=== PATIENT | female | born 1990 | race Caucasian/White ===

== ENCOUNTER 2018-02-16 15:10 | Emergency (ER) | payer OTHER ==
--- NOTE | 2018-02-16 15:58 | PDOC ---
Rapid Medical Evaluation Time Seen by Provider: 02/16/18 15:56 Medical Evaluation: I have performed a brief in-person evaluation of this patient. The patient presents with a chief complaint of: lower abdominal pain and dysuria x a few weeks. Worsened today. 31 weeks Pertinent physical exam findings: none I have ordered the following: nothing. Patient will proceed to L&D for evaluation and monitoring The patient will proceed to L&D for further evaluation. Discharge Disposition - Diagnosis Abdominal pain affecting - Referrals - Patient Instructions - Post Discharge Activity
[2018-02-16 16:05] VITALS: BMI 34.7
[2018-02-16 17:10] VITALS: BP 101/59; PULSE 91; TEMP 98.6
== END 2018-02-16 17:40 | disposition home or self-care (01) ==
LOC: JER 15:10
DX: O26.893 Other specified pregnancy related conditions, third trimester (principal); R10.30 Lower abdominal pain, unspecified; Z3A.31 31 weeks gestation of pregnancy
CPT/HCPCS: 99281-25

== ENCOUNTER 2020-07-06 10:34 | Emergency (ER) | payer OTHER ==
[2020-07-06 10:46] VITALS: BP 120/79; PULSE 63; TEMP 97; BMI 33.3
[2020-07-06] MEDS ORDERED: ONDANSETRON 4 MG/2 ML VIAL IVPB ONE (10:58)
[2020-07-06] MEDS ORDERED: ONDANSETRON 4 MG/2 ML VIAL ONE (11:08)
[2020-07-06] MEDS ORDERED: SODIUM CHLORIDE 1,000 ML IV STA (11:30)
[2020-07-06 12:17] LABS: BASO % 0.4 % (0-2.0); EOS % 0.3 % (0-4.5); HEMATOCRIT 44.5 % (32.4-45.2); LYMPH % 16.7 % (8-40); MCH 26.7 pg (25.7-33.7); MCHC 33.7 g/dl (32.0-36.0); MEAN CELL VOLUME 79.2 fl (80-96); MEAN PLT VOLUME 9.3 fl (7.5-11.1); MONO % 4.3 % (3.8-10.2); NEUT % 78.3 % (42.8-82.8); PLATELET COUNT 328 K/MM3 (134-434); RBC 5.62 M/mm3 (3.60-5.2); WHITE BLOOD COUNT 12.5 K/mm3 (4.0-10.0)
[2020-07-06 12:19] LABS: EPI CELLS 7 /uL (0-25.1); HYALINE CASTS 1 /uL (0-3.1); PH,URINE 5.5 (5.0-8.0); URINE APPEARANCE CLEAR; URINE BACTERIA 110 /uL (0-1359); URINE BILIRUBIN NEGATIVE (NEGATIVE); URINE COLOR DK YELLOW; URINE GLUCOSE (UA) NEGATIVE (NEGATIVE); URINE KETONE TRACE (NEGATIVE); URINE LEUK ESTERASE NEGATIVE (NEGATIVE); URINE NITRITE NEGATIVE (NEGATIVE); URINE PROTEIN TRACE (NEGATIVE); URINE RBC 8 /uL (0-23.9); URINE WBC 5 /uL (0-25.8)
[2020-07-06 12:20] LABS: HCG,QUALITATIVE URINE Negative
[2020-07-06] MEDS ORDERED: KETOROLAC TROMETHAMINE 30 MG/1 ML VIAL IVPUSH ONE (12:25)
[2020-07-06] MEDS ORDERED: KETOROLAC TROMETHAMINE 30 MG/1 ML VIAL ONE (12:31)
[2020-07-06 12:37] LABS: POTASSIUM 4.8 mmol/L (3.5-5.1)
[2020-07-06 12:39] LABS: ALBUMIN 4.7 g/dl (3.4-5.0); CALCIUM 9.5 mg/dL (8.5-10.1); MAGNESIUM 2.3 mg/dL (1.8-2.4)
[2020-07-06 12:40] LABS: BLOOD UREA NITROGEN 7.1 mg/dL (7-18)
[2020-07-06 12:42] LABS: CREATININE 1.1 mg/dL (0.55-1.3)
[2020-07-06 12:44] LABS: BILIRUBIN,TOTAL 0.8 mg/dL (0.2-1); TOT PROT 8.3 g/dl (6.4-8.2)
[2020-07-06] MEDS ORDERED: ACETAMINOPHEN 1000 MG/100 ML VIAL (NON FORMULARY) IVPB ONE (12:55)
[2020-07-06] MEDS ORDERED: ACETAMINOPHEN INJECTION 100 ML IVPB ONE (13:16)
== END 2020-07-06 16:23 | disposition home or self-care (01) ==
LOC: JER 10:34
PROC: 3E0333Z Introduction of Anti-inflammatory into Peripheral Vein, Percutaneous Approach (ICD-10-PCS; principal; 2020-07-06)
PROC: 3E0333Z Introduction of Anti-inflammatory into Peripheral Vein, Percutaneous Approach (ICD-10-PCS; 2020-07-06)
PROC: 3E033GC Introduction of Other Therapeutic Substance into Peripheral Vein, Percutaneous Approach (ICD-10-PCS; 2020-07-06)
PROC: 3E0337Z Introduction of Electrolytic and Water Balance Substance into Peripheral Vein, Percutaneous Approach (ICD-10-PCS; 2020-07-06)
DX: R10.2 Pelvic and perineal pain (principal); R10.31 Right lower quadrant pain
CPT/HCPCS: 36415; 74177-TC; 76830-TC; 80053; 81003; 83690; 83735; 84703; 85025; 99285-25; J0131; Q9967

== ENCOUNTER 2020-07-07 16:44 | Inpatient (IN) | payer OTHER ==
[2020-07-07] MEDS ORDERED: ONDANSETRON 4 MG/2 ML VIAL ONE (18:10)
[2020-07-07] MEDS ORDERED: ACETAMINOPHEN 1000 MG/100 ML VIAL (NON FORMULARY) IVPB ONE (18:18)
[2020-07-07] MEDS ORDERED: LACTATED RINGERS SOLUTION 1000 ML INFUS.BAG IV ONE (18:18)
[2020-07-07] MEDS ORDERED: ONDANSETRON 4 MG/2 ML VIAL IVPUSH ONE (18:20)
[2020-07-07] MEDS ORDERED: ACETAMINOPHEN INJECTION 100 ML IVPB ONE (18:22)
[2020-07-07 18:55] LABS: BASO % 0.3 % (0-2.0); HEMATOCRIT 41.3 % (32.4-45.2); HEMOGLOBIN 14.1 GM/dL (10.7-15.3); LYMPH % 4.7 % (8-40); MCH 26.8 pg (25.7-33.7); MCHC 34.3 g/dl (32.0-36.0); MEAN CELL VOLUME 78.2 fl (80-96); MONO % 2.8 % (3.8-10.2); NEUT % 92.2 % (42.8-82.8); PLATELET COUNT 266 K/MM3 (134-434); RBC 5.27 M/mm3 (3.60-5.2); RDW 15.3 % (11.6-15.6); WHITE BLOOD COUNT 25.6 K/mm3 (4.0-10.0)
[2020-07-07 19:17] LABS: POTASSIUM 3.4 mmol/L (3.5-5.1)
[2020-07-07 19:19] LABS: ALBUMIN 4.4 g/dl (3.4-5.0); BLOOD UREA NITROGEN 12.2 mg/dL (7-18); CALCIUM 9.8 mg/dL (8.5-10.1)
[2020-07-07 19:22] LABS: CREATININE 1.1 mg/dL (0.55-1.3)
[2020-07-07 19:24] LABS: BILIRUBIN,TOTAL 1.3 mg/dL (0.2-1)
[2020-07-07] MEDS ORDERED: SODIUM CHLORIDE 0.9% 500 ML INFUS.BAG IV ONE ×2 (19:47→21:46)
[2020-07-07] MEDS ORDERED: morphine CARPU-JECT 4 MG/1 ML DISP.SYRIN IVPUSH ONE (20:21)
[2020-07-07] MEDS ORDERED: MORPHINE SULFATE 2 MG/ML VIAL ONE (20:30)
[2020-07-07 20:46] LABS: INR 1.88 (0.83-1.09); PROTHROMBIN TIME (PATIENT) 22.7 SEC (9.7-13.0)
[2020-07-07 20:47] LABS: ANISOCYTOSIS 1+; PLATELET ESTIMATE ADEQUATE
[2020-07-07 20:49] LABS: ACTIVATED PTT 30.3 SECONDS (25.2-36.5)
[2020-07-07 22:13] LABS: EPI CELLS 16 /uL (0-25.1); HYALINE CASTS 3 /uL (0-3.1); URINE APPEARANCE CLEAR; URINE BACTERIA 23 /uL (0-1359); URINE BILIRUBIN NEGATIVE (NEGATIVE); URINE COLOR ORANGE; URINE GLUCOSE (UA) NEGATIVE (NEGATIVE); URINE KETONE 1+ (NEGATIVE); URINE LEUK ESTERASE NEGATIVE (NEGATIVE); URINE NITRITE NEGATIVE (NEGATIVE); URINE PROTEIN 1+ (NEGATIVE); URINE RBC 278 /uL (0-23.9); URINE UROBILINOGEN 0.2 mg/dL (0.2-1.0); URINE WBC 17 /uL (0-25.8)
[2020-07-07 22:54] LABS: URINE BARBITURATES NEGATIVE ng/ml (CUTOFF=200)
[2020-07-07 22:58] LABS: COCAINE, UR NEGATIVE ng/ml (CUTOFF=300); METHADONE, UR NEGATIVE ng/ml (CUTOFF=300); PHENCYCLIDINE,URINE NEGATIVE ng/ml (CUTOFF=25); URINE AMPHETAMINES NEGATIVE ng/ml (CUTOFF=500); URINE BENZODIAZEPINES NEGATIVE ng/ml (CUTOFF=200)
[2020-07-07 23:11] LABS: OPIATES, URI POSITIVE ng/ml (CUTOFF=300)
[2020-07-07] MEDS ORDERED: FAMOTIDINE 20 MG/50 ML IVPB 20 MG/50 ML MG IVPB ONE ×2 (23:19→23:59)
[2020-07-08] MEDS: DEXTROSE 5%-0.45% SALINE 1,000 ML IV SCH ×3 (00:07→23:29)
[2020-07-08] MEDS ORDERED: MORPHINE SULFATE 2 MG/ML VIAL ONE ×2 (01:24→09:13)
[2020-07-08] MEDS: MORPHINE SULFATE 2 MG/ML VIAL IVPUSH PRN ×3 (01:39→14:20)
[2020-07-08] MEDS ORDERED: ACETAMINOPHEN INJECTION 100 ML IVPB ONE ×2 (01:41→10:49)
[2020-07-08] MEDS: ACETAMINOPHEN 1000 MG/100 ML VIAL (NON FORMULARY) IVPB PRN ×3 (01:46→18:07)
[2020-07-08] MEDS ORDERED: ONDANSETRON 4 MG/2 ML VIAL ONE (05:25)
[2020-07-08] MEDS: ONDANSETRON 4 MG/2 ML VIAL IVPUSH PRN ×3 (05:28→23:30)
[2020-07-08] MEDS ORDERED: HYDROmorphone HCl 2 MG/ML VIAL IVPUSH ONE (06:39)
[2020-07-08] MEDS ORDERED: HYDROmorphone HCl 2 MG/ML VIAL ONE (07:29)
[2020-07-08 08:17] LABS: BASO % 0.1 % (0-2.0); EOS % 0.2 % (0-4.5); HEMATOCRIT 36.3 % (32.4-45.2); HEMOGLOBIN 12.2 GM/dL (10.7-15.3); LYMPH % 3.9 % (8-40); MCH 26.3 pg (25.7-33.7); MCHC 33.6 g/dl (32.0-36.0); MEAN CELL VOLUME 78.1 fl (80-96); MEAN PLT VOLUME 9.1 fl (7.5-11.1); MONO % 1.8 % (3.8-10.2); PLATELET COUNT 252 K/MM3 (134-434); RBC 4.65 M/mm3 (3.60-5.2); RDW 15.4 % (11.6-15.6); WHITE BLOOD COUNT 22.9 K/mm3 (4.0-10.0)
[2020-07-08 08:33] LABS: POTASSIUM 3.6 mmol/L (3.5-5.1)
[2020-07-08 08:41] LABS: ALBUMIN 3.5 g/dl (3.4-5.0); BLOOD UREA NITROGEN 7.3 mg/dL (7-18); CALCIUM 8.8 mg/dL (8.5-10.1)
[2020-07-08 08:44] LABS: CREATININE 0.8 mg/dL (0.55-1.3)
[2020-07-08 08:46] LABS: BILIRUBIN,TOTAL 1.2 mg/dL (0.2-1)
[2020-07-08 08:48] LABS: MAGNESIUM 1.8 mg/dL (1.8-2.4)
[2020-07-08] MEDS ORDERED: ENOXAPARIN NA (PORCINE) 30 MG/0.3 ML DISP.SYRIN SQ ONE (10:09)
[2020-07-08] MEDS ORDERED: FAMOTIDINE 20 MG/50 ML IVPB 20 MG/50 ML MG IVPB ONE (10:09)
[2020-07-08] MEDS: FAMOTIDINE 20 MG/50 ML IVPB 20 MG/50 ML MG IVPB SCH ×2 (10:15→21:43)
[2020-07-08 10:20] LABS: ANISOCYTOSIS 1+; MACROCYTOSIS 1+; PLATELET ESTIMATE NORMAL
[2020-07-08] MEDS: ENOXAPARIN NA (PORCINE) 40 MG/0.4 ML DISP.SYRIN SQ SCH (10:55)
[2020-07-08] MEDS ORDERED: CEFTRIAXONE 2 GM in DEXTROSE 5%-WATER 2 GM/100 ML BAG IVPB SCH (14:30)
[2020-07-08] MEDS ORDERED: DEXTROSE 5%-WATER 100 ML IVPB ONE ×2 (14:49→15:46)
[2020-07-08] MEDS ORDERED: PIPERACILLIN/TAZOBACTAM 4.5 GM VIAL IVPB ONE (15:46)
[2020-07-08] MEDS: PIPERACILLIN/TAZOB 4.5 GM 4.5 GM in DEXTROSE 5%-WATER 100 ML IVPB SCH (16:27)
[2020-07-08] MEDS: VANCOMYCIN 1,250 MG in DEXTROSE 5%-WATER - 250 ML IVPB SCH (17:39)
[2020-07-08] MEDS ORDERED: PT OWN MED DRAWER 7, Y5N ONE (21:45)
[2020-07-08] MEDS: DOXYCYCLINE INJECTION 100 MG in DEXTROSE 5%-WATER - 100 ML IVPB SCH (21:46)
[2020-07-09] MEDS ORDERED: DEXTROSE 5%-WATER 100 ML IVPB ONE ×3 (01:33→17:14)
[2020-07-09] MEDS ORDERED: PIPERACILLIN/TAZOBACTAM 4.5 GM VIAL IVPB ONE ×3 (01:33→17:14)
[2020-07-09] MEDS: MORPHINE SULFATE 2 MG/ML VIAL IVPUSH PRN ×2 (02:30→10:55)
[2020-07-09] MEDS: PIPERACILLIN/TAZOB 4.5 GM 4.5 GM in DEXTROSE 5%-WATER 100 ML IVPB SCH ×3 (02:41→17:18)
[2020-07-09] MEDS: ONDANSETRON 4 MG/2 ML VIAL IVPUSH PRN ×2 (04:54→12:29)
[2020-07-09] MEDS: VANCOMYCIN 1,250 MG in DEXTROSE 5%-WATER - 250 ML IVPB SCH ×2 (05:42→17:21)
[2020-07-09] MEDS: ACETAMINOPHEN 1000 MG/100 ML VIAL (NON FORMULARY) IVPB PRN (05:53)
[2020-07-09 08:58] LABS: BASO % 0.3 % (0-2.0); EOS % 0.7 % (0-4.5); HEMATOCRIT 34.7 % (32.4-45.2); HEMOGLOBIN 11.6 GM/dL (10.7-15.3); LYMPH % 5.7 % (8-40); MCH 26.3 pg (25.7-33.7); MCHC 33.4 g/dl (32.0-36.0); MEAN CELL VOLUME 78.7 fl (80-96); MEAN PLT VOLUME 9.1 fl (7.5-11.1); MONO % 2.7 % (3.8-10.2); NEUT % 90.6 % (42.8-82.8); PLATELET COUNT 249 K/MM3 (134-434); RBC 4.41 M/mm3 (3.60-5.2); RDW 15.4 % (11.6-15.6); WHITE BLOOD COUNT 19.6 K/mm3 (4.0-10.0)
[2020-07-09 09:17] LABS: POTASSIUM 3.1 mmol/L (3.5-5.1)
[2020-07-09 09:22] LABS: BLOOD UREA NITROGEN 4.8 mg/dL (7-18); CALCIUM 8.6 mg/dL (8.5-10.1)
[2020-07-09 09:25] LABS: CREATININE 0.7 mg/dL (0.55-1.3); PHOSPHOROUS 2.2 mg/dL (2.5-4.9)
[2020-07-09 09:27] LABS: BILIRUBIN,TOTAL 1.1 mg/dL (0.2-1); TOT PROT 6.5 g/dl (6.4-8.2)
[2020-07-09] MEDS: ENOXAPARIN NA (PORCINE) 40 MG/0.4 ML DISP.SYRIN SQ SCH (10:04)
[2020-07-09] MEDS: DOXYCYCLINE INJECTION 100 MG in DEXTROSE 5%-WATER - 100 ML IVPB SCH ×2 (10:04→21:55)
[2020-07-09] MEDS: ASCORBIC ACID 500 MG TABLET (FP) PO SCH ×3 (10:04→21:55)
[2020-07-09] MEDS: FAMOTIDINE 20 MG/50 ML IVPB 20 MG/50 ML MG IVPB SCH ×2 (10:04→21:10)
[2020-07-09] MEDS: ZINC SULFATE 220 MG CAPSULE (FP) PO SCH ×2 (10:04→14:21)
[2020-07-09] MEDS ORDERED: PT OWN MED DRAWER 7, Y5N ONE ×2 (17:14→21:08)
[2020-07-09] MEDS: BENZOCAINE/MENTH/CETYLPYRD CL 1 EACH LOZENGE MM PRN (21:55)
[2020-07-10] MEDS ORDERED: DEXTROSE 5%-WATER 100 ML IVPB ONE ×3 (01:07→17:06)
[2020-07-10] MEDS ORDERED: PIPERACILLIN/TAZOBACTAM 4.5 GM VIAL IVPB ONE ×2 (01:07→09:48)
[2020-07-10] MEDS: DEXTROSE 5%-0.45% SALINE 1,000 ML IV SCH (02:51)
[2020-07-10] MEDS: PIPERACILLIN/TAZOB 4.5 GM 4.5 GM in DEXTROSE 5%-WATER 100 ML IVPB SCH ×2 (02:51→10:02)
[2020-07-10] MEDS ORDERED: PT OWN MED DRAWER 7, Y5N ONE ×4 (03:04→21:14)
[2020-07-10] MEDS: MORPHINE SULFATE 2 MG/ML VIAL IVPUSH PRN ×3 (04:05→16:18)
[2020-07-10] MEDS: ONDANSETRON 4 MG/2 ML VIAL IVPUSH PRN (04:07)
[2020-07-10] MEDS: VANCOMYCIN 1,250 MG in DEXTROSE 5%-WATER - 250 ML IVPB SCH (04:08)
[2020-07-10 09:33] LABS: BASO % 0.1 % (0-2.0); EOS % 1.7 % (0-4.5); HEMATOCRIT 32.9 % (32.4-45.2); MCH 26.7 pg (25.7-33.7); MCHC 33.6 g/dl (32.0-36.0); MEAN CELL VOLUME 79.6 fl (80-96); MEAN PLT VOLUME 9.5 fl (7.5-11.1); MONO % 6.7 % (3.8-10.2); NEUT % 83.5 % (42.8-82.8); PLATELET COUNT 257 K/MM3 (134-434); RBC 4.13 M/mm3 (3.60-5.2); RDW 15.1 % (11.6-15.6); WHITE BLOOD COUNT 12.2 K/mm3 (4.0-10.0)
[2020-07-10 09:47] LABS: POTASSIUM 3.1 mmol/L (3.5-5.1)
[2020-07-10] MEDS ORDERED: MAGNESIUM SULF 50% (8.12 MEQ/2 ML-1 GM VIAL) IVPB ONE ×2 (09:55→18:45)
[2020-07-10] MEDS: KCL 10 MEQ IVPB 10 MEQ/100 ML INFUS.BAG IVPB SCH ×3 (09:59→16:16)
[2020-07-10] MEDS: ENOXAPARIN NA (PORCINE) 40 MG/0.4 ML DISP.SYRIN SQ SCH (09:59)
[2020-07-10 10:00] LABS: ALBUMIN 2.8 g/dl (3.4-5.0); BLOOD UREA NITROGEN 10.3 mg/dL (7-18); CALCIUM 8.8 mg/dL (8.5-10.1)
[2020-07-10] MEDS ORDERED: MAGNESIUM SULFATE IN WATER 2 GM/50 ML IVPB IVPB ONE (10:00)
[2020-07-10] MEDS: ZINC SULFATE 220 MG CAPSULE (FP) PO SCH (10:00)
[2020-07-10] MEDS: FAMOTIDINE 20 MG/50 ML IVPB 20 MG/50 ML MG IVPB SCH ×2 (10:01→21:25)
[2020-07-10 10:02] LABS: CREATININE 1.8 mg/dL (0.55-1.3)
[2020-07-10] MEDS: ASCORBIC ACID 500 MG TABLET (FP) PO SCH (10:02)
[2020-07-10] MEDS: DOXYCYCLINE INJECTION 100 MG in DEXTROSE 5%-WATER - 100 ML IVPB SCH ×2 (10:02→21:25)
[2020-07-10 10:03] LABS: BILIRUBIN,TOTAL 0.9 mg/dL (0.2-1)
[2020-07-10 10:04] LABS: TOT PROT 6.4 g/dl (6.4-8.2)
[2020-07-10 10:08] VITALS: BMI 32.5
[2020-07-10 10:17] LABS: MAGNESIUM 2.3 mg/dL (1.8-2.4)
[2020-07-10] MEDS: CEFTRIAXONE 2 GM in DEXTROSE 5%-WATER 2 GM/100 ML BAG IVPB SCH (18:15)
[2020-07-10] MEDS: DEXTROSE 5%-LACTATED RINGERS 1,000 ML IV SCH (18:16)
[2020-07-11] MEDS: DEXTROSE 5%-LACTATED RINGERS 1,000 ML IV SCH ×3 (00:03→21:53)
[2020-07-11] MEDS: MORPHINE SULFATE 2 MG/ML VIAL IVPUSH PRN ×2 (01:16→06:01)
[2020-07-11] MEDS: ONDANSETRON 4 MG/2 ML VIAL IVPUSH PRN (01:16)
[2020-07-11 09:42] LABS: BASO % 0.2 % (0-2.0); EOS % 3.9 % (0-4.5); HEMATOCRIT 30.6 % (32.4-45.2); HEMOGLOBIN 10.4 GM/dL (10.7-15.3); LYMPH % 16.9 % (8-40); MCH 26.5 pg (25.7-33.7); MCHC 33.8 g/dl (32.0-36.0); MEAN CELL VOLUME 78.3 fl (80-96); MEAN PLT VOLUME 8.6 fl (7.5-11.1); MONO % 10.7 % (3.8-10.2); NEUT % 68.3 % (42.8-82.8); PLATELET COUNT 301 K/MM3 (134-434); RDW 15.3 % (11.6-15.6); WHITE BLOOD COUNT 8.2 K/mm3 (4.0-10.0)
[2020-07-11 09:54] LABS: CHLORIDE 109 mmol/L (98-107); SODIUM 140 mmol/L (136-145)
[2020-07-11 09:58] LABS: CALCIUM 8.6 mg/dL (8.5-10.1)
[2020-07-11 09:59] LABS: ALBUMIN 2.5 g/dl (3.4-5.0); ANION GAP 9 MMOL/L (8-16); CO2 23 mmol/L (21-32); GLUCOSE,RANDOM 117 mg/dL (74-106); MAGNESIUM 3.3 mg/dL (1.8-2.4)
[2020-07-11 10:01] LABS: SGOT/AST 9 U/L (15-37); SGPT/ALT < 6 U/L (13-61)
[2020-07-11 10:02] LABS: CREATININE 2.4 mg/dL (0.55-1.3); PHOSPHOROUS 1.5 mg/dL (2.5-4.9)
[2020-07-11 10:03] LABS: BILIRUBIN,TOTAL 0.9 mg/dL (0.2-1); TOT PROT 5.7 g/dl (6.4-8.2)
[2020-07-11] MEDS ORDERED: DEXTROSE 5%-WATER 100 ML IVPB ONE (10:03)
[2020-07-11 10:04] LABS: ALK PHOS 65 U/L (45-117)
[2020-07-11] MEDS: ENOXAPARIN NA (PORCINE) 40 MG/0.4 ML DISP.SYRIN SQ SCH (10:08)
[2020-07-11] MEDS: DOXYCYCLINE INJECTION 100 MG in DEXTROSE 5%-WATER - 100 ML IVPB SCH (10:09)
[2020-07-11] MEDS: CEFTRIAXONE 2 GM in DEXTROSE 5%-WATER 2 GM/100 ML BAG IVPB SCH (10:09)
[2020-07-11] MEDS: FAMOTIDINE 20 MG/50 ML IVPB 20 MG/50 ML MG IVPB SCH ×2 (10:09→21:53)
[2020-07-11] MEDS ORDERED: DEXTROSE 5%-LACTATED RINGERS 980 ML with POTASSIUM CHLORIDE 40 MEQ IV SCH (10:23)
[2020-07-11] MEDS ORDERED: POTASSIUM PHOSPHATE 30 MM in SODIUM CHLORIDE 500 ML IVPB ONE (11:00)
[2020-07-11] MEDS ORDERED: SODIUM CHLORIDE IVPB ONE (12:00)
[2020-07-11] MEDS ORDERED: POTASSIUM PHOSPHATE IVPB ONE (12:00)
[2020-07-11 12:07] LABS: EPI CELLS 27 /uL (0-25.1); HYALINE CASTS 1 /uL (0-3.1); PH,URINE 6.5 (5.0-8.0); URINE APPEARANCE CLEAR; URINE BACTERIA 3 /uL (0-1359); URINE BILIRUBIN NEGATIVE (NEGATIVE); URINE COLOR YELLOW; URINE GLUCOSE (UA) NEGATIVE (NEGATIVE); URINE KETONE NEGATIVE (NEGATIVE); URINE LEUK ESTERASE TRACE (NEGATIVE); URINE NITRITE NEGATIVE (NEGATIVE); URINE PROTEIN TRACE (NEGATIVE); URINE RBC 154 /uL (0-23.9); URINE UROBILINOGEN 0.2 mg/dL (0.2-1.0); URINE WBC 36 /uL (0-25.8)
[2020-07-11] MEDS: KCL 10 MEQ IVPB 10 MEQ/100 ML INFUS.BAG IVPB SCH ×3 (17:53→19:49)
[2020-07-11 20:06] LABS: POTASSIUM 3.4 mmol/L (3.5-5.1)
[2020-07-11 20:08] LABS: CALCIUM 8.5 mg/dL (8.5-10.1)
[2020-07-11 20:09] LABS: BLOOD UREA NITROGEN 11.3 mg/dL (7-18)
[2020-07-11 20:12] LABS: CREATININE 2.4 mg/dL (0.55-1.3)
[2020-07-11] MEDS ORDERED: PT OWN MED DRAWER 7, Y5N ONE (20:37)
[2020-07-11] MEDS: DOXYCYCLINE INJECTION 100 MG in DEXTROSE 5%-WATER 100 ML IVPB SCH (22:06)
[2020-07-12] MEDS: DEXTROSE 5%-LACTATED RINGERS 1,000 ML IV SCH ×2 (06:21→20:17)
[2020-07-12 09:22] LABS: BASO % 0.4 % (0-2.0); EOS % 2.3 % (0-4.5); HEMOGLOBIN 9.8 GM/dL (10.7-15.3); LYMPH % 14.9 % (8-40); MCHC 33.7 g/dl (32.0-36.0); MEAN CELL VOLUME 77.1 fl (80-96); MEAN PLT VOLUME 8.5 fl (7.5-11.1); MONO % 10.7 % (3.8-10.2); NEUT % 71.7 % (42.8-82.8); PLATELET COUNT 306 K/MM3 (134-434); RBC 3.76 M/mm3 (3.60-5.2); RDW 15.4 % (11.6-15.6); WHITE BLOOD COUNT 9.2 K/mm3 (4.0-10.0)
[2020-07-12 09:44] LABS: POTASSIUM 3.2 mmol/L (3.5-5.1)
[2020-07-12 09:52] LABS: BLOOD UREA NITROGEN 10.3 mg/dL (7-18)
[2020-07-12 09:54] LABS: CALCIUM 8.3 mg/dL (8.5-10.1); PHOSPHOROUS 2.7 mg/dL (2.5-4.9)
[2020-07-12 09:55] LABS: MAGNESIUM 2.4 mg/dL (1.8-2.4)
[2020-07-12] MEDS ORDERED: DOXYCYCLINE HYCLATE 100 MG VIAL ONE ×2 (09:57→20:31)
[2020-07-12 09:58] LABS: CREATININE 2.1 mg/dL (0.55-1.3)
[2020-07-12] MEDS ORDERED: DEXTROSE 5%-WATER 100 ML IVPB ONE ×3 (09:58→20:31)
[2020-07-12] MEDS: ENOXAPARIN NA (PORCINE) 40 MG/0.4 ML DISP.SYRIN SQ SCH (10:02)
[2020-07-12] MEDS: CEFTRIAXONE 2 GM in DEXTROSE 5%-WATER 2 GM/100 ML BAG IVPB SCH (10:03)
[2020-07-12] MEDS: FAMOTIDINE 20 MG/50 ML IVPB 20 MG/50 ML MG IVPB SCH ×2 (10:03→22:55)
[2020-07-12] MEDS: DOXYCYCLINE INJECTION 100 MG in DEXTROSE 5%-WATER 100 ML IVPB SCH ×2 (10:05→21:26)
[2020-07-12] MEDS: ONDANSETRON 4 MG/2 ML VIAL IVPUSH PRN (10:16)
[2020-07-12] MEDS ORDERED: POTASSIUM CHLORIDE 10 MEQ PREMIX IVPB (POTASSIUM RIDER) IVPB SCH (12:50)
[2020-07-12] MEDS ORDERED: POTASSIUM CHLORIDE ORAL LIQUID 20 MEQ/15 ML PO ONE (12:50)
[2020-07-12] MEDS: KCL 10 MEQ IVPB 10 MEQ/100 ML INFUS.BAG IVPB SCH ×2 (13:40→14:47)
[2020-07-12] MEDS: MORPHINE SULFATE 2 MG/ML VIAL IVPUSH PRN (20:18)
[2020-07-13] MEDS: ONDANSETRON 4 MG/2 ML VIAL IVPUSH PRN ×3 (01:21→20:29)
[2020-07-13] MEDS: DEXTROSE 5%-LACTATED RINGERS 1,000 ML IV SCH ×2 (07:45→20:03)
[2020-07-13] MEDS: MORPHINE SULFATE 2 MG/ML VIAL IVPUSH PRN (08:21)
[2020-07-13 08:30] LABS: POTASSIUM 3.2 mmol/L (3.5-5.1)
[2020-07-13 08:31] LABS: ALBUMIN 2.5 g/dl (3.4-5.0); CALCIUM 8.4 mg/dL (8.5-10.1)
[2020-07-13 08:32] LABS: BLOOD UREA NITROGEN 7.3 mg/dL (7-18)
[2020-07-13 08:34] LABS: BASO % 0.3 % (0-2.0); EOS % 3.3 % (0-4.5); HEMATOCRIT 27.7 % (32.4-45.2); HEMOGLOBIN 9.6 GM/dL (10.7-15.3); LYMPH % 20.4 % (8-40); MCH 26.8 pg (25.7-33.7); MCHC 34.8 g/dl (32.0-36.0); MEAN CELL VOLUME 77.1 fl (80-96); MEAN PLT VOLUME 8.3 fl (7.5-11.1); MONO % 11.2 % (3.8-10.2); NEUT % 64.8 % (42.8-82.8); PLATELET COUNT 272 K/MM3 (134-434); RDW 15.3 % (11.6-15.6); WHITE BLOOD COUNT 8.6 K/mm3 (4.0-10.0)
[2020-07-13 08:35] LABS: CREATININE 1.9 mg/dL (0.55-1.3); PHOSPHOROUS 2.6 mg/dL (2.5-4.9)
[2020-07-13 08:36] LABS: BILIRUBIN,TOTAL 0.4 mg/dL (0.2-1); TOT PROT 5.6 g/dl (6.4-8.2)
[2020-07-13] MEDS ORDERED: DEXTROSE 5%-WATER 100 ML IVPB ONE ×3 (09:33→20:07)
[2020-07-13] MEDS ORDERED: DOXYCYCLINE HYCLATE 100 MG VIAL ONE ×2 (09:33→20:06)
[2020-07-13] MEDS: FAMOTIDINE 20 MG/50 ML IVPB 20 MG/50 ML MG IVPB SCH ×2 (09:37→23:00)
[2020-07-13] MEDS: ENOXAPARIN NA (PORCINE) 40 MG/0.4 ML DISP.SYRIN SQ SCH (09:37)
[2020-07-13] MEDS: CEFTRIAXONE 2 GM in DEXTROSE 5%-WATER 2 GM/100 ML BAG IVPB SCH (09:37)
[2020-07-13] MEDS: DOXYCYCLINE INJECTION 100 MG in DEXTROSE 5%-WATER 100 ML IVPB SCH ×2 (10:30→21:34)
[2020-07-13 10:48] LABS: ANISOCYTOSIS 0; MACROCYTOSIS 0; PLATELET ESTIMATE NORMAL
[2020-07-13] MEDS ORDERED: POTASSIUM CHLORIDE 20 MEQ PREMIX IVPB 100 ML IVPB ONE (10:58)
[2020-07-13] MEDS: KCL 10 MEQ IVPB 10 MEQ/100 ML INFUS.BAG IVPB SCH ×2 (13:04→14:15)
[2020-07-13] MEDS ORDERED: ACETAMINOPHEN 1000 MG/100 ML VIAL (NON FORMULARY) IVPB ONE (20:29)
[2020-07-14] MEDS ORDERED: ACETAMINOPHEN 1000 MG/100 ML VIAL (NON FORMULARY) IVPB ONE (05:44)
[2020-07-14] MEDS ORDERED: DEXTROSE 5%-WATER 100 ML IVPB ONE ×2 (09:33→23:35)
[2020-07-14 09:43] LABS: BASO % 0.4 % (0-2.0); HEMATOCRIT 29.3 % (32.4-45.2); HEMOGLOBIN 10.1 GM/dL (10.7-15.3); LYMPH % 18.2 % (8-40); MCH 26.7 pg (25.7-33.7); MCHC 34.4 g/dl (32.0-36.0); MEAN CELL VOLUME 77.7 fl (80-96); MEAN PLT VOLUME 8.5 fl (7.5-11.1); MONO % 9.9 % (3.8-10.2); NEUT % 69.5 % (42.8-82.8); PLATELET COUNT 270 K/MM3 (134-434); RBC 3.77 M/mm3 (3.60-5.2); RDW 15.5 % (11.6-15.6); WHITE BLOOD COUNT 7.8 K/mm3 (4.0-10.0)
[2020-07-14 09:52] LABS: POTASSIUM 3.2 mmol/L (3.5-5.1)
[2020-07-14] MEDS: FAMOTIDINE 20 MG/50 ML IVPB 20 MG/50 ML MG IVPB SCH ×2 (10:08→22:15)
[2020-07-14] MEDS: ENOXAPARIN NA (PORCINE) 40 MG/0.4 ML DISP.SYRIN SQ SCH (10:08)
[2020-07-14 10:16] LABS: BLOOD UREA NITROGEN 8.2 mg/dL (7-18)
[2020-07-14 10:17] LABS: CALCIUM 8.6 mg/dL (8.5-10.1)
[2020-07-14 10:21] LABS: IRON SERUM 27 ug/dL (50-175)
[2020-07-14 10:22] LABS: TOTAL IRON BINDING CAPACITY 242 ug/dL (250-450)
[2020-07-14] MEDS: CEFTRIAXONE 2 GM in DEXTROSE 5%-WATER 2 GM/100 ML BAG IVPB SCH (11:10)
[2020-07-14 12:12] LABS: ANISOCYTOSIS 0; MACROCYTOSIS 0; PLATELET ESTIMATE NORMAL
[2020-07-14] MEDS: DOXYCYCLINE INJECTION 100 MG in DEXTROSE 5%-WATER 100 ML IVPB SCH ×2 (12:13→23:52)
[2020-07-14] MEDS: KCL 10 MEQ IVPB 10 MEQ/100 ML INFUS.BAG IVPB SCH ×2 (13:38→15:21)
[2020-07-14] MEDS: BENZOCAINE/MENTH/CETYLPYRD CL 1 EACH LOZENGE MM PRN (15:21)
[2020-07-14] MEDS ORDERED: POTASSIUM CHLORIDE TABS 20 MEQ TABLET.ER (FP) PO ONE (19:04)
[2020-07-14] MEDS: DEXTROSE 5%-LACTATED RINGERS 1,000 ML IV SCH (21:26)
[2020-07-14] MEDS ORDERED: DOXYCYCLINE HYCLATE 100 MG VIAL ONE (23:35)
[2020-07-15] MEDS ORDERED: DOXYCYCLINE HYCLATE 100 MG VIAL ONE (08:57)
[2020-07-15] MEDS ORDERED: DEXTROSE 5%-WATER 100 ML IVPB ONE (08:57)
[2020-07-15 09:35] LABS: BASO % 0.5 % (0-2.0); EOS % 1.9 % (0-4.5); HEMATOCRIT 29.3 % (32.4-45.2); HEMOGLOBIN 10.1 GM/dL (10.7-15.3); LYMPH % 17.6 % (8-40); MCH 26.4 pg (25.7-33.7); MCHC 34.5 g/dl (32.0-36.0); MEAN CELL VOLUME 76.7 fl (80-96); MEAN PLT VOLUME 8.7 fl (7.5-11.1); MONO % 10.2 % (3.8-10.2); NEUT % 69.8 % (42.8-82.8); PLATELET COUNT 299 K/MM3 (134-434); RBC 3.83 M/mm3 (3.60-5.2); RDW 15.5 % (11.6-15.6)
[2020-07-15 09:55] LABS: POTASSIUM 3.7 mmol/L (3.5-5.1)
[2020-07-15 10:02] LABS: CALCIUM 8.5 mg/dL (8.5-10.1)
[2020-07-15 10:03] LABS: ALBUMIN 2.7 g/dl (3.4-5.0)
[2020-07-15 10:06] LABS: CREATININE 1.8 mg/dL (0.55-1.3)
[2020-07-15 10:07] LABS: BILIRUBIN,TOTAL 0.6 mg/dL (0.2-1)
[2020-07-15 10:11] LABS: TOT PROT 5.8 g/dl (6.4-8.2)
[2020-07-15] MEDS: FAMOTIDINE 20 MG/50 ML IVPB 20 MG/50 ML MG IVPB SCH (10:40)
[2020-07-15 11:44] LABS: ANISOCYTOSIS 0; MACROCYTOSIS 0; PLATELET ESTIMATE NORMAL
[2020-07-15] MEDS: CEFTRIAXONE 2 GM in DEXTROSE 5%-WATER 2 GM/100 ML BAG IVPB SCH (12:00)
[2020-07-15] MEDS ORDERED: DEXTROSE 5%-LACTATED RINGERS 1,000 ML IV SCH (12:32)
[2020-07-15] MEDS: DOXYCYCLINE INJECTION 100 MG in DEXTROSE 5%-WATER 100 ML IVPB SCH (13:30)
[2020-07-15 14:36] VITALS: BP 123/78; PULSE 69; TEMP 99.2
== END 2020-07-15 18:06 | disposition home or self-care (01) | DRG 720 ==
LOC: JER 16:44 → JERBED 21:39 → J6S 07-08 11:39
PROVIDERS: ADMIT Internal Medicine; ATTEND Internal Medicine
PROC: 0D9670Z Drainage of Stomach with Drainage Device, Via Natural or Artificial Opening (ICD-10-PCS; principal; 2020-07-09)
DX: A41.89 Other specified sepsis (principal); R10.84 Generalized abdominal pain; D72.829 Elevated white blood cell count, unspecified; Z21 Asymptomatic human immunodeficiency virus [HIV] infection status; R11.2 Nausea with vomiting, unspecified; R19.7 Diarrhea, unspecified; E87.6 Hypokalemia; F12.90 Cannabis use, unspecified, uncomplicated; K56.7 Ileus, unspecified; E83.42 Hypomagnesemia; K21.9 Gastro-esophageal reflux disease without esophagitis; N17.9 Acute kidney failure, unspecified; R63.0 Anorexia; E66.9 Obesity, unspecified; Z68.32 Body mass index [BMI] 32.0-32.9, adult; N73.8 Other specified female pelvic inflammatory diseases; A54.9 Gonococcal infection, unspecified; J98.11 Atelectasis; T36.8X5A Adverse effect of other systemic antibiotics, initial encounter; A08.39 Other viral enteritis; E86.0 Dehydration; A54.85 Gonococcal peritonitis; K56.609 Unspecified intestinal obstruction, unspecified as to partial versus complete obstruction; Z20.828 Contact with and (suspected) exposure to other viral communicable diseases
CPT/HCPCS: 36415; 71045-TC-FY; 71046-TC-FY; 74018-TC-FY; 74176-TC; 76775-TC; 80048; 80053; 80307; 81003; 82150; 82436; 82550; 82565; 82728; 83540; 83550; 83605; 83615; 83690; 83735; 84100; 84133; 84300; 84484; 84703; 85025; 85379; 85384; 85610; 85730; 86140; 86359; 86360; 87040; 87045; 87046; 87086; 87177; 87205; 87207; 87209; 87324; 87328; 87329; 87449; 87491; 87591; 93005; 93010; 94010; 99285-25; C9803; J0131; U0003

== ENCOUNTER 2022-03-09 08:11 | Emergency (ER) | payer OTHER ==
[2022-03-09 08:19] VITALS: BP 101/69; PULSE 91; RESP 18; TEMP 98.3; BMI 32.4
[2022-03-09] MEDS ORDERED: LIDOCAINE HCL/PF 2% SDV 5ML VIAL SQ ONE (09:11)
[2022-03-09] MEDS ORDERED: LIDOCAINE HCL 2% (20ML MULTI-DOSE VIAL) ONE (09:15)
[2022-03-09] MEDS ORDERED: ACETAMINOPHEN 500 MG TABLET (FP) PO ONE (09:40)
== END 2022-03-09 10:44 | disposition home or self-care (01) ==
LOC: JER 08:11
DX: K08.89 Other specified disorders of teeth and supporting structures (principal)
CPT/HCPCS: 99283-25

== ENCOUNTER 2022-11-16 11:41 | Emergency (ER) | payer OTHER ==
[2022-11-16 11:59] VITALS: BP 115/70; PULSE 94; RESP 16; TEMP 98.5; BMI 34.2
[2022-11-16] MEDS ORDERED: predniSONE 20 MG TABLET (UD) PO ONE (13:18)
[2022-11-16] MEDS ORDERED: METHOCARBAMOL 500 MG TABLET PO ONE (13:18)
[2022-11-16] MEDS ORDERED: METHOCARBAMOL 500 MG TABLET ONE (13:21)
[2022-11-16] MEDS ORDERED: predniSONE 20 MG TABLET (UD) ONE (13:21)
== END 2022-11-16 13:56 | disposition home or self-care (01) ==
LOC: JERFT 11:41
DX: M54.2 Cervicalgia (principal); R51.9 Headache, unspecified; M25.511 Pain in right shoulder
CPT/HCPCS: 99283-25